=== PATIENT | female | born 1985 | race Caucasian/White ===

== ENCOUNTER 2024-07-24 16:28 | Outpatient (REF) | payer BC, SELFPAY ==
--- OUTSIDE RECORDS SUMMARY | 2024-07-24 17:45 | XMS_ITS | Clinical Summary ---
Author Organization [facility] Address [address] [place] [address] Care Team Providers Care Satellite Dish Repairer Name Role Phone Amita Little MD Primary Care Provider Unavailabl e Encounters Date Type Department Care Team Description 05/12/2024 Travel from Last 3 Months Social History Tobacco Use Types Packs/Day Years Used Date Smoking Tobacco: Never Assessed Comments Unknown Sex and Gender Information Value Date Recorded Sex Assigned at Female 10/18/2023 8:31 AM EDT Legal Sex Female 8:34 AM EDT Gender Identity Female 10/18/2023 8:31 AM EDT Sexual Orientation Heterosexual (straight) 10/17 8:31 AM EDT Plan of Treatment Health Maintenance Due Date Last Done Comments Hepatitis C Virus Screening 1983 HIV Screening 05/28/1996 DTaP/Tdap/Td Vaccines (1 - Tdap) 05/28/2002 Pneumococcal Vaccine: Pediatric (0-5 Years) and At-Risk Patients (6 to 49 Years) (1 of 2 - PCV) 05/28/2002 Hepatitis B Vaccines (1 of 3 - Risk Dialysis 4-dose series) 2003 Pap Smear (Ages 21-65) 05/28/2004 Mammogram 2023 COVID-19 Vaccine (3 - 2023- season) 2023 07/16/2020, 06/25/2020 Influenza Vaccine 10/20/2024 01/16/2014 Hemoglobin A1C Discontinued 12/21/2023 HPV Vaccines Aged Out No longer eligi ble based on patient's age to complete this topic Insurance BLUE CROSS OUT OF STATE - O BLUE CROSS OUT OF FORMERLY [facility], [facility] - [facility] [place] [facility] [place] Care Teams Satellite Dish Repairer Relationship Specialty Start Date End Date Amita Little MD PCP - General 04/16/22
--- OUTSIDE RECORDS SUMMARY | 2024-07-24 17:45 | XMS_ITS | Encounter Summary ---
Author Organization [facility] Address [address] [place] [address] Phone Care Team Providers Care Belt Cutter Name Role Phone Amita Little MD Primary Care Provider [phone] Reason for Visit * Reason Onset Date Comments Med Refill 10/31/2020 Encounter Details Date Type Department Care Team (Late st Contact Info) Description 10/31/2020 Refill [facility] [address] [place] [address] Nanette Funez RN Social History Tobacco Use Types Packs/Day Years Used Date Smoking Tobacco: Never Smokeless Tobacco: Never Alcohol Use Standard Drinks/Week Comments Not Currently 0 (1 standard drink = 0.6 oz pur e alcohol) Comments Unknown Sex and Gender Information Value Date Recorded Sex Assigned at Not on file Legal Sex Female 4:50 PM EST Gender Identity Not on file Sexual Orientation Not on file documented as of this encounter Plan of Treatment Not on file documented as of this encounter Visit Diagnoses Not on filedocumented in this encounter Care Teams Belt Cutter Relationship Specialty Start Date End Date Amita Little MD [address] [place] [phone] PCP - General Internal Medicine 01/28/24 documented as of this encounter
--- OUTSIDE RECORDS SUMMARY | 2024-07-24 17:45 | XMS_ITS | Encounter Summary ---
Author Organization [facility], Address [address] [place] [address] Phone Care Team Providers Care Door To Door Sales Representative Name Role Phone Amita Little MD Primary Care Provider [phone] Encounter Details Date Type Department Care Team (Late st Contact Info) Description 10/09/2020 Telephone [facility] [address] [place] [address] Shawanda Bowens [address] [place] [phone] Social History Tobacco Use Types Packs/Day Years Used Date Smoking Tobacco: Never Smokeless Tobacco: Never Alcohol Use Standard Drinks/Week Comments Not Currently 0 (1 standard drink = 0.6 oz pur e alcohol) Comments Unknown Sex and Gender Information Value Date Recorded Sex Assigned at Not on file Legal Sex Female 4:50 PM EST Gender Identity Not on file Sexual Orientation Not on file COVID-19 Exposure Response Date Recorded In the last month, have you been in contact with someone who was confirmed or suspected to have Coronavirus / COVID-19? No / Unsure 09/30/2020 12:32 PM EDT documented as of this encounter Plan of Treatment Not on file documented as of this encounter Visit Diagnoses Not on filedocumented in this encounter Care Teams Door To Door Sales Representative Relationship Specialty Start Date End Date Amita Little MD [address] [place] [phone] PCP - General Internal Medicine 01/28/24 documented as of this encounter
--- OUTSIDE RECORDS SUMMARY | 2024-07-24 17:45 | XMS_ITS ---
Author Name [facility] Organization Unknown History of Medication Use Medication Directions Dispensed Refills Start Date End Date Stat HumaLOG KWIKPEN 100 UNIT/ML SOPN Inject 12-18 Units under the skin 3 (three) times a day before meals. 12/23/2023 active Semaglutide,0.25 or 0.5MG/DOS, (Ozempic, 0.25 or 0.5 MG/DOSE,) 2 MG/3ML SOPN Inject 0.38-0.75 mL (0.25-0.5 mg total) under the skin once a week. 09/28/2023 01/18/2024 active Insulin Pen Needle (BD Pen Needle Apple U/F) 32G X 4 MM MISC 1 each by Does not apply route 6 (six) times a day. 06/21/2023 active Lantus SoloStar 100 UNIT/ML injection Inject 34 Units under the skin every night at bedtime. 06/21/2023 active Semaglutide,0.25 or 0.5MG/DOS, (Ozempic, 0.25 or 0.5 MG/DOSE,) 2 MG/3ML SOPN Inject 0.25 mg under the skin once a week. 08/06/2022 active losartan (COZAAR) tablet 50 mg 07/13/2022 active Envarsus XR 1 MG TB24 07/03/2022 active Lantus SoloStar 100 UNIT/ML injection 06/19/2022 06/21/2023 aborted HumaLOG KWIKPEN 100 UNIT/ML SOPN 05/28/2022 06/21/2023 aborted Problems Problem Status Onset Date Problem Type Date of Resolution Source Complication of transplanted kidney, unspecified complication active EncounterDiagnosisAct HHCCT History of renal transplant active 2022-07-17 ProblemAct [facility] IgA nephropathy active 2022-07-[address] [facility] Type 2 diabetes mellitus with hyperglycemia, with long-term current use of insulin (HCC) active EncounterDiagnosisAct [facility] Mixed hyperlipidemia active 2022-07-17 ProblemAct [facility] Benign essential hypertension active 2022-07-17 ProblemAct [facility] Immunizations Vaccine Date Source Lot Number Status Pfizer SARS-CoV-2 COVID-19, mRNA, LNP-S, preservative free 07/16/2020 [facility] UNK completed Pfizer SARS-CoV-2 COVID-19, mRNA, LNP-S, preservative free 06/25/2020 [facility] UNK completed Encounters Encounter Type Encounter Reason Primary Diagnosis Location Date Ambulatory Unspecified complication of kidney transplant Unspecified complication of kidney transplant [facility] 05/12/2024 Ambulatory Type 2 diabetes mellitus with hyperglycemia Type 2 diabetes mellitus with hyperglycemia [facility] 01/18/2024 Ambulatory Type 2 diabetes mellitus with hyperglycemia Type 2 diabetes mellitus with hyperglycemia [facility] 01/18/2024 Ambulatory Type 2 diabetes mellitus with hyperglycemia Type 2 diabetes mellitus with hyperglycemia [facility] 12/20/2023 Ambulatory Unspecified complication of kidney transplant Unspecified complication of kidney transplant [facility] 10/21/2023 Ambulatory Type 2 diabetes mellitus with hyperglycemia Type 2 diabetes mellitus with hyperglycemia [facility] 09/20/2023 Ambulatory Type 2 diabetes mellitus with hyperglycemia Type 2 diabetes mellitus with hyperglycemia [facility] 09/13/2023 Ambulatory Type 2 diabetes mellitus with hyperglycemia Type 2 diabetes mellitus with hyperglycemia [facility] 06/21/2023 Ambulatory Unspecified complication of kidney transplant Unspecified complication of kidney transplant [facility] 12/30/2022 Ambulatory Kidney transplan t status [facility] 05/15/2022 Care Team Organization Name Specialty Phone Email Start Date End Da te [facility] 01/29/2024 [facility] 01/27/2024 [facility] 04/03/2023 [facility] 0 06/21/2023 [facility] 12/30/2022 06/19/2024 [facility] PCP,No Primary Care 05/15/2022 06/19/2024 [facility] NO PCP Primary Care [facility]
--- OUTSIDE RECORDS SUMMARY | 2024-07-24 17:45 | XMS_ITS | Encounter Summary ---
Author Organization [facility] Address [address] [place] [address] Phone Care Team Providers Care Product Marketing Executive Name Role Phone Amita Little MD Primary Care Provider [phone] Encounter Details Date Type Department Care Team (Late st Contact Info) Description 07/12/2020 Orders Only [facility] [address] [place] [address] Loreto Hale RN Kidney replaced by transplant Social History Tobacco Use Types Packs/Day Years [...] have Coronavirus / COVID-19? No / Unsure 06/28/2020 9:37 AM EDT documented as of this encounter Plan of Treatment Not on file documented as of this encounter Procedures Procedure Name Priority Date/Time Associated Diagnosis Comments CBC AND DIFFERENTIAL Routine 07/13/2020 12:46 PM EDT Kidney replaced by transplant RENAL FUNCTION PANEL Routine 07/13/2020 12:46 PM EDT Kidney replaced by transplant documented in this encounter Results * (ABNORMAL) Renal function panel (07/13/2020 12:46 PM EDT) Glucose 94 (70-99) MG/DL [facility] BUN 77(H) (6-20) MG/DL [facility] Creatinine 7.4(H) (0.5-1.0) MG/DL [facility] Sodium 139 (133-145) MMOL/L [facility] Potassium 5.8(H) (3.6-5.2) MMOL/L [facility] Chloride 107 (98-107) MMOL/L [facility] Bicarbonate (CO2) 15(L) (22-29) MMOL/L [facility] Anion Gap 17 (4-17) [facility] Albumin 4.5 (3.4-4.8) GM/DL [facility] Calcium 9.2 (8.6-10.5) MG/DL [facility] Phosphorus, Serum 5.6(H) (2.5-4.5) MG/DL [facility] Est GFR Non 6 ML/MIN/1.7 3 M2 [facility] Comment: Creatinine based estimated glomerular filtration rate (eGFR) is calculated using the Chronic Kidney Disease Epidemiology Collaboration (CKD-EPI). The CKD-EPI creatinine equation has not been validated in children (<18 years), women or in some racial or ethnic subgroups other than Caucasians and Americans. EST GFR 7 ML/MIN/1.7 3 M2 [facility] Comment: Creatinine based estimated glomerular filtration rate (eGFR) is calculated using the Chronic Kidney Disease Epidemiology Collaboration (CKD-EPI). The CKD-EPI creatinine equation has not been validated in children (<18 years), women or in some racial or ethnic subgroups other than Caucasians and Americans. Testing performed or reported by [facility], a Service of [facility], [address] [place] [address] Sadiq Rai MD, Charge Master Analyst Blood (Blood, Venous) 07/13/2020 12:46 PM EDT 07/13/2020 12:55 PM EDT us Joss Restrepo MD LAB BLOOD ORDERABLES Final Re sult [facility] * (ABNORMAL) CBC and differential (07/13/2020 12:46 PM EDT) [facility] White Blood Cells 4.1 (4.0-11.0) K/MM3 [facility] RBC 2.65(L) (4.20-5.40 ) M/MM3 [facility] Hgb 7.9(L) (11.7-15.5 ) GM/DL [facility] Hematocrit 24.0(L) (35.7-45.8 ) % [facility] MCV 90.6 (80.0-100. 0) FL [facility] MCH 29.8 (27.0-34.0 ) PG [facility] MCHC 32.9(L) (33.0-37.0 ) g/dL [facility] Platelets 163 (150-460) K/MM3 [facility] RDW-SD 57.1(H) (<47.0) FL [facility] MPV 9.3(L) (9.4-12.4) [place] [facility] nRBC Count 0.0 #/100 WBC'S [facility] NRBC Absolute 0.0 K/MM3 [facility] Neutrophils Abs Auto 3.8 (1.3-7.0) K/MM3 [facility] Lymphocytes Relative 0.0(L) (0.8-3.1) K/MM3 [facility] Monocytes 0.1(L) (0.4-0.9) K/MM3 [facility] Eosinophils Relative 0.0 (0.0-0.4) K/MM3 [facility] Basophil ABS 0.0 (0.0-0.1) K/MM3 [facility] Granulocytes Absolute 0.1 K/MM3 [facility] Neutrophils % Auto 92.9(H) (44-76) % [facility] Lymphs 0.0(L) (15-43) % [facility] Monocytes Absolute 3.2(L) (4.5-10.5) % [facility] Eosinophils 0.0 (0-6) % [facility] Basophils Relative 0.5 (0-2) % [facility] Immature Granulocytes 3.4 % [facility] Comment: Testing performed or reported by [facility] a Service of [facility], [address] [place] [id number] Sadiq Rai MD, Charge Master Analyst Blood (Blood, Venous) 07/13/2020 12:46 PM EDT 07/13/2020 12:55 PM EDT Joss Restrepo MD LAB BLOOD ORDERABLES Final Re sult [facility] documented in this encounter Visit Diagnoses Diagnosis Kidney replaced by transplant documented in this encounter Care Teams Product Marketing Executive Relationship Specialty Start Date End Date Amita Little MD [address] [place] [phone] PCP - General Internal Medicine 01/28/24 documented as of this encounter
--- OUTSIDE RECORDS SUMMARY | 2024-07-24 17:45 | XMS_ITS | Encounter Summary ---
Author Organization [facility], Address [address] [place] [address] Phone Care Team Providers Care Book Salesman Name Role Phone Amita Little MD Primary Care Provider [phone] Encounter Details Date Type Department Care Team (Late st Contact Info) Description 11/18/2023 Documentation Only [facility], [address] [place] [address] Ann Jones [address] [place] [address] Social History Tobacco Use Types Packs/Day Years [...] on filedocumented in this encounter Care Teams Book Salesman Relationship Specialty Start Date End Date Amita Little MD [address] [place] [phone] PCP - General Internal Medicine 01/28/24 documented as of this encounter
--- OUTSIDE RECORDS SUMMARY | 2024-07-24 17:45 | XMS_ITS | Encounter Summary ---
Author Organization [facility], Address [address] [place] [address] Phone Care Team Providers Care Gauge And Weigh Machine Operator Name Role Phone Amita Little MD Primary Care Provider [phone] Encounter Details Date Type Department Care Team (Late st Contact Info) Description 06/18/2024 Documentation Only [facility], [address] [place] [address] [place] [address] [place] [phone] Social History Tobacco Use Types Packs/Day Years Used Date Smoking Tobacco: Never Smokeless Tobacco: Never Alcohol Use Standard Drinks/Week Comments Yes 0 (1 standard drink = 0.6 oz pur e alcohol) occasional social Comments Unknown Sex and Gender Information Value Date Recorded Sex Assigned at Not on file Legal Sex Female 4:50 PM EST Gender Identity Not on file Sexual Orientation Not on file documented as of this encounter Plan of Treatment Not on file documented as of this encounter Visit Diagnoses Not on filedocumented in this encounter Care Teams Gauge And Weigh Machine Operator Relationship Specialty Start Date End Date Amita Little MD [address] [place] [phone] PCP - General Internal Medicine 01/28/24 documented as of this encounter
--- OUTSIDE RECORDS SUMMARY | 2024-07-24 17:45 | XMS_ITS | Clinical Summary ---
Author Organization [facility] Address [address] [place] [address] Care Team Providers Care Property And Casualty Insurance Agent Name Role Phone Amita Little MD Primary Care Provider [phone] Medications Medication Sig Dispensed Refills Start Date End Date Status Magnesium Extra Strength 400 MG CAPS 0 07/13/2022 Acti ve atorvastatin (LIPITOR) tablet 20 mg 0 07/13/2022 Active losartan (COZAAR) tablet 50 mg 0 07/13/2022 Active predniSONE (DELTASONE) tablet 2.5 mg 0 07/13/2022 Active Envarsus XR 1 MG TB24 0 07/03/2022 Act shyanne mycophenolate (MYFORTIC) 180 MG EC tablet 0 05/05/2023 Active Continuous Blood Gluc Sensor (FreeStyle Wilman 3 Sensor) MISCIndications:Type 2 diabetes mellitus with hyperglycemia, with long-term current use of insulin ([facility]) 1 each by Does not apply route every 14 (fourteen) days. 6 each 3 06/21/2023 Active Glucagon (Baqsimi Two Pack) 3 MG/DOSE POWDIndications:Type 2 diabetes mellitus with hyperglycemia, with long-term current use of insulin ([facility]) spray or apply 1 each inside Nose as needed. 1 each 1 06/21/2023 Active OneTouch Delica Lancets 33G MISCIndications:Type 2 diabetes mellitus with hyperglycemia, with long-term current use of insulin ([facility]) Use to check sugars 3 times a day 100 each 12 06/21/2023 Active Blood Glucose Monitoring Suppl (OneTouch Verio Flex System) w/Device KITIndications:Type 2 diabetes mellitus with hyperglycemia, with long-term current use of insulin ([facility]) 1 each by Does not apply route continuous. 1 kit 0 06/21/2023 Active glucose blood (OneTouch Verio) test stripIndications:Type 2 diabetes mellitus with hyperglycemia, with long-term current use of insulin ([facility]) Use to check sugars 3 times a day 100 each 12 06/21/2023 Active HumaLOG KWIKPEN 100 UNIT/ML SOPNIndications:Type 2 diabetes mellitus with hyperglycemia, with long-term current use of insulin ([facility]) Inject 12-18 Units under the skin 3 (three) times a day before meals. 30 mL 3 12/23/2023 Active Lantus SoloStar 100 UNIT/ML injectionIndications:T ype 2 diabetes mellitus with hyperglycemia, with long-term current use of insulin ([facility]) Inject 34 Units under the skin every night at bedtime. 30 mL 4 01/18/2024 Active Semaglutide,0.25 or 0.5MG/DOS, (Ozempic, 0.25 or 0.5 MG/DOSE,) 2 MG/3ML SOPNIndications:Type 2 diabetes mellitus with hyperglycemia, with long-term current use of insulin ([facility]) Inject 0.38-0.75 mL (0.25-0.5 mg total) under the skin once a week. 3 mL 1 01/18/2024 Active Insulin Pen Needle (BD Pen Needle Apple U/F) 32G X 4 MM MISCIndications:Type 2 diabetes mellitus with hyperglycemia, with long-term current use of insulin ([facility]) 1 each by Does not apply route 6 (six) times a day. 400 each 10 01/18/2024 Active Active Problems Problem Noted Date Diagnosed Date Benign essential hypertension 07/17/2022 Mixed hyperlipidemia 07/17/2022 IgA nephropathy 07/17/2022 History of renal transplant 07/17/2022 Social History Tobacco Use Types Packs/Day Years Used Date Smoking Tobacco: Never Smokeless Tobacco: Never Tobacco Cessation:Counseling Given: No Alcohol Use Standard Drinks/Week Comments Not Currently 0 (1 standard drink = 0.6 oz pur e alcohol) Sex and Gender Information Value Date Recorded Sex Assigned at Not on file Gender Identity Not on file Sexual Orientation Not on file Job Start Date Occupation Industry Not on file Not on file Not on file Last Filed Vital Signs Vital Sign Reading Time Taken Comments Blood Pressure 122/80 12/20/2023 2:54 PM EDT Pulse 79 12/20/2023 2:54 PM EDT Temperature - - Respiratory Rate - - Oxygen Saturation - - Inhaled Oxygen Concentration - - Weight 88 kg (194 lb) 12/20/2023 2:54 PM EDT Height 163.2 cm (5' 4.25 ) 09/13/2023 3:01 PM ED T Body Mass Index 33.04 09/13/2023 3:01 PM EDT Plan of Treatment Health Maintenance Due Date Last Done Comments Hepatitis C Screening 1985 Pneumococcal Vaccine (1 of 2 - PCV) 05/28/1989 Depression Screening 1995 Diabetes: Eye Exam (No Retinopathy) 05/28/2001 Diabetes: Foot Exam 05/28/2001 Diabetes: Microalbumin Test 05/28/2001 Hemoglobin A1C Due 05/28/2001 Preventative Health Evaluation 05/28/2001 Cervical Cancer Screening (Pap Smear) 05/28/2004 COVID-19 Vaccine (3 - Pfizer risk series) 08/13/2020 07/16/2020, 06/25/2020 Influenza Vaccine (#1) 2023 DTap / Tdap / Td (4 - Td or Tdap) 01/17/2024 01/16/2014, 11/01/2007, 11/19/1992 BMI Counseling 12/19/2024 12/20/2023, 07/0 03/2023, 09/13/2023, Additional history exists Hepatitis B Vaccines Completed 11/12/1997, 12/21/1995, 07/20/1995 RSV Ped < 20 months Aged Out No longe r eligible based on patient's age to complete this topic Care Teams Property And Casualty Insurance Agent Relationship Specialty Start Date End Date Amita Little MD PCP - General Internal Medicine 07/15/22
--- OUTSIDE RECORDS SUMMARY | 2024-07-24 17:45 | XMS_ITS | Encounter Summary ---
Author Organization [facility] Address [address] [facility] [address] [place] [address] Phone Care Team Providers Care Set Rider Name Role Phone Amita Little MD Primary Care Provider [phone] Encounter Details Date Type Department Care Team ([facility] st Contact Info) Description 09/30/2023 Office Communication [facility] [address] [facility] [address] [place] [address] Venkata Childress MD [address] [facility] [address] [place] [address] Social History Tobacco Use Types Packs/Day Years [...] on file documented as of this encounter Miscellaneous Notes * Telephone Encounter - Venkata Childress MD - 10/01/2023 4:23 PM EDT K 5.5 Lokelma 10 gm 3x/wk and low K diet * Telephone Encounter - Venkata Childress MD - 09/30/2023 5:10 AM EDT I need kidney Bx report from [facility] ( Dr Estevez) as all I have is the procedure report documented in this encounter Plan of Treatment Not on file documented as of this encounter Visit Diagnoses Not on filedocumented in this encounter Care Teams Set Rider Relationship Specialty Start Date End Date Amita Little MD [address] [place] [phone] PCP - General Internal Medicine 01/28/24 documented as of this encounter
--- OUTSIDE RECORDS SUMMARY | 2024-07-24 17:45 | XMS_ITS | Encounter Summary ---
Author Organization [facility] Address [address] [place] [address] Phone Care Team Providers Care Product Development Specialist Name Role Phone Amita Little MD Primary Care Provider [phone] Encounter Details Date Type Department Care Team (Late st Contact Info) Description 08/12/2020 Orders Only [facility] [address] [place] [address] Loreto Hale RN Social History Tobacco Use Types Packs/Day [...] have Coronavirus / COVID-19? No / Unsure 08/12/2020 8:31 AM EDT documented as of this encounter Plan of Treatment Not on file documented as of this encounter Visit Diagnoses Not on filedocumented in this encounter Care Teams Product Development Specialist Relationship Specialty Start Date End Date Amita Little MD [address] [place] [phone] PCP - General Internal Medicine 01/28/24 documented as of this encounter
--- OUTSIDE RECORDS SUMMARY | 2024-07-24 17:45 | XMS_ITS | Encounter Summary ---
Author Organization [facility] Address [address] [place] [address] Phone Care Team Providers Care Core Java Software Engineer Name Role Phone Amita Little MD Primary Care Provider [phone] Reason for Visit * Reason Comments Med Refill Encounter Details Date Type Department Care Team (Late st Contact Info) Description 11/17/2023 Refill [facility] [address] [place] [phone] Venkata Childress MD [address] [facility] [address] [place] [phone] Social History Tobacco Use Types Packs/Day Years [...] on filedocumented in this encounter Care Teams Core Java Software Engineer Relationship Specialty Start Date End Date Amita Little MD [address] [place] [phone] PCP - General Internal Medicine 01/28/24 documented as of this encounter
--- OUTSIDE RECORDS SUMMARY | 2024-07-24 17:45 | XMS_ITS | Encounter Summary ---
Author Organization [facility] Address [address] [facility] [address] [place] [address] Phone Care Team Providers Care Hazard Waste Handler Name Role Phone Amita Little MD Primary Care Provider [phone] Encounter Details Date Type Department Care Team ([facility] st Contact Info) Description 10/31/2023 Office Communication [facility] [address] [place] [address] [place] [address] Venkata Childress MD [address] [facility] [address] [place] [phone] Social History Tobacco Use Types Packs/Day Years [...] encounter Miscellaneous Notes * Telephone Encounter - Nelia Joseph - 11/01/2023 10:25 AM EDT No she is being seen at [facility] 11/17 * Telephone Encounter - Venkata Childress MD - 10/31/2023 4:08 PM EDT Does she have f/u RTANE ? documented in this encounter Plan of Treatment Not on file documented as of this encounter Visit Diagnoses Not on filedocumented in this encounter Care Teams Hazard Waste Handler Relationship Specialty Start Date End Date Amita Little MD [address] [place] [address] PCP - General Internal Medicine 01/28/24 documented as of this encounter
--- OUTSIDE RECORDS SUMMARY | 2024-07-24 17:45 | XMS_ITS | Encounter Summary ---
Author Organization [facility] Address [address] [place] [address] Care Team Providers Care Resource Specialist Name Role Phone Amita Little MD Primary Care Provider [phone] Reason for Visit * Reason Onset Date Comments Referral 07/24/2024 Encounter Details Date Type Department Care Team ([facility] Contact Info) Description 07/24/2024 Telephone Adult Medicine [facility] [address] [place] [address] Amita Little MD [address] [place], [place] [phone] Referral Social History Tobacco Use Types Packs/Day Years Used Date Smoking Tobacco: Never Smokeless Tobacco: Never Alcohol Use Standard Drinks/Week Comments Not Currently 0 (1 standard drink = 0.6 oz pur e alcohol) Comments Unknown Sex and Gender Information Value Date Recorded Sex Assigned at Not on file Legal Sex Female 11:56 AM EST Gender Identity Not on file Sexual Orientation Not on file documented as of this encounter Progress Notes * Nadine Dooley - 07/24/2024 4:49 PM EDT Referral Request: What insurance does the patient have today? Payor: BRADLEY Casas [place] / Plan[place] / Product Type: *No Product type* / Referrals cannot be processed if the insurance is not accurate. If the insurance listed above in red is NO BILLING INFORMATION FOUND FOR THIS ENCOUTNER The patients correct insurance must be obtained and registered in [facility] or their referral can not be processed. Who is calling to request this referral? fax If the caller is not the patient, what is their name? not applicable Ask the patient WHO referred them to this specialty: Patient self referred FIRST and LAST NAME of SPECIALIST PATIENT is seeing: Maureen Singh NP What specialty is this? Renal DIAGNOSIS Patient is being seen for (Not a body part or a procedure): Z 94.0 Have you seen this SPECIALIST for this PROBLEM/DX before? If YES, when? No Have you checked REVIEW or the APPT DESK to see if this referral has already been done or has visits left? yes Is this visit: Initial Visit Address of Specialist: [address] [place] [address] Dr Crescencio Auguste [place] Phone # of Specialist: [phone] Fax #: (if applicable): [phone] Does patient have an appointment scheduled?: yes Date of appointment- (including a retro-request): 07/20/24 Is this appointment related to: Not MVA, worker compensation, or surgery related documented in this encounter Plan of Treatment Upcoming Encounters Date Type Department Care Team (Late st Contact Info) Description 07/31/2024 8:50 AM EDT Office Visit [facility] [address] [place] [address] Dr Haq [address] [place] [phone] Bharat Pimentel MD [address] [place] [address],[address] [address] 08/15/2024 5:00 PM EDT Office Visit Adult Medicine [address] [phone] Pauly Meza NP [address] [place], [place] 08/21/2024 3:15 PM EDT [facility] [address] [phone] Suellen Araujo PA [address] [place] [address] documented as of this encounter Visit Diagnoses Diagnosis 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
--- OUTSIDE RECORDS SUMMARY | 2024-07-24 17:45 | XMS_ITS | Encounter Summary ---
Author Organization [facility], Address [address] [place] [address] Phone Care Team Providers Care Molder Name Role Phone Amita Little MD Primary Care Provider [phone] Encounter Details Date Type Department Care Team (Latest Contact Info) Description 07/20/2024 4:00 PM EDT Clinical Support [facility] [address] [place] [phone] Maureen Singh FNP-C [address] [place] [phone] Kidney replaced by transplant (Primary Dx); Kidney transplant status; Personal history of immunosuppression therapy; Stage 3b chronic kidney disease (HCC) Social History Tobacco Use Types Packs/Day Years [...] on file documented as of this encounter Last Filed Vital Signs Vital Sign Reading Time Taken Comments Blood Pressure 149/94 07/20/2024 4:10 PM EDT Pulse 79 07/20/2024 4:10 PM EDT Temperature - - Respiratory Rate - - Oxygen Saturation - - Inhaled Oxygen Concentration - - Weight 87 kg (191 lb 12.8 oz) 07/20/2024 4:10 PM EDT Height - - Body Mass Index 32.92 06/08/2024 7:39 AM EDT documented in this encounter Plan of Treatment Scheduled Orders Name Type Priority Associated Diagnoses Orde r Schedule Tacrolimus, Highly Sensitive, LC/MS/MS Lab Routine Kidney replaced by transplant Expected: 07/20/2024, Expires: 08/20/2025 documented as of this encounter Visit Diagnoses Diagnosis Kidney replaced by transplant- Primary Kidney transplant status Personal history of immunosuppression therapy Stage 3b chronic kidney disease (HCC) documented in this encounter Care Teams Molder Relationship Specialty Start Date End Date Amita Little MD [address] [place] [id number] PCP - General Internal Medicine 01/28/24 documented as of this encounter
--- OUTSIDE RECORDS SUMMARY | 2024-07-24 17:45 | XMS_ITS | Clinical Summary ---
Author Organization [place] [address] [address] [facility] Address [address] [place] [address] [address] Phone Care Team Providers Care Security Systems Specialist Name Role Phone Amita Little MD Primary Care Provider [phone] Allergies No known active allergies Medications atorvastatin (LIPITOR) 20 mg tablet Take 1 Tablet by mouth daily. 02/25/2023 Active semaglutide (OZEMPIC) 0.25 mg or 0.5 mg (2 mg/3 mL) injection pen Inject 0.38-0.75 mL (0.25-0.5 mg total) under the skin once a week. 01/18/2024 Active predniSONE (DELTASONE) 2.5 mg tablet Take 3 tablets (7.5 mg total) by mouth 1 (one) time daily 60 minutes before a meal 7.5 mg daily 07/13/2022 Active insulin glargine (LANTUS) 100 unit/mL injection Inject 22 Units into the skin at bedtime. 06/13/2020 Active tacrolimus (Envarsus XR) 1 mg extended release tablet 12/16/2021 Acti ve aspirin 81 mg EC tabletIndicatio ns:Annual physical exam Take 1 tablet (81 mg total) by mouth 1 (one) time each day. 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[place]) Type 2 diabetes mellitus ([facility] V24, [facility] V 28) 05/27/2020 Assessment & Plan (05/17/2024 8:45 AM EST): A-V fistula ([facility] [place]24) 12/14/2018 Overweight (BMI 25.0-29.9) 12/23/2017 Hypertension 04/21/2017 Assessment & Plan (05/17/2024 8:45 AM EST): Secondary hyperparathyroidism ([facility]) 03/24 Vitamin D deficiency 04/21/2017 ESRD on dialysis ([facility] [place], [facility] V28) 06/2016 Overview (02/11/2024): Follows with nephrology, most recent renal biopsy 01/06/2017 with 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 [address] [facility] [address] [place] [address] Amita Little MD 06/12/2024 Telephone Adult [address] [phone] Amita Little MD Referral (Ophthalmology ) 05/16/2024 10:30 AM EST Office Visit Adult [address] [phone] Amita Little MD Cerebrovascular accident (CVA) due to thromboembolism ([facility] V24, [facility] V28) (Primary Dx); Primary hypertension; Type 2 diabetes mellitus with other specified complication, without long-term current use of insulin (CMS[facility] V24, [facility] V28) 05/03/2024 8:18 AM EST - 05/03/2024 11:59 PM EST Hospital Encounter CT Scan - [address] [phone] Annual physical exam; Slurred speech; History of stroke Discharge Disposition: Home or Self Care 05/03/2024 Telephone Adult Medicine [address] [phone] Pauly Meza, FUR PULLER Results (CT scan of the head) from Last 3 Months Immunizations Name Administration Dates Next Due Hepatitis B Pediatric (Enger ix B; Recombivax HB) to less than 20 yo 11/12/1997,12/21/1995,07/20/1995 MMR, measles mumps and rubel la Live (Priorix; M-M-R II) 12mo and older 07/20/1995,08/20/1984 Pfizer SARS-CoV-2 COVID-19, mRNA, LNP-S, preservative free 07/16/2020,06/25/2020 Td Tetanus diptheria (Tdvax) 7yo and older 11/19 Tdap Tetanus diptheria acell ular pertussis (Boostrix; Adacel) 7yo and older 11/01/2007 Social History Tobacco Use Types Packs/Day Years Used Date Smoking Tobacco: Never Smokeless Tobacco: Never Tobacco Cessation:Counseling Given: Not Answered Alcohol Use Standard Drinks/Week Comments Not Currently 0 (1 standard drink = 0.6 oz pur e alcohol) Comments Unknown Sex and Gender Information Value Date Recorded Sex Assigned at Not on file Legal Sex Female 11:56 AM EST Gender Identity Not on file Sexual Orientation Not on file Obstetrics History Last Filed Vital Signs Vital Sign Reading Time Taken Comments Blood Pressure 116/66 05/16/2024 10:12 AM EST Pulse 78 05/16/2024 10:12 AM EST Temperature 36 ??C (96.8 ??F) 05/16/2024 10:12 AM EST Respiratory Rate 20 05/16/2024 10:12 AM EST Oxygen Saturation - - Inhaled Oxygen Concentration - - Weight 87.5 kg (193 lb) 05/16/2024 10:12 AM EST Height 163.8 cm (5' 4.5 ) 05/16/2024 10:12 AM ES T Body Mass Index 32.62 05/16/2024 10:12 AM EST Plan of Treatment Upcoming Encounters Date Type Department Care Team (Late st Contact Info) Description 07/31/2024 8:50 AM EDT Office Visit [facility] [address] [place] [address] Bharat Pimnetel MD [address] [place] [address],[address] [place] [address] 08/15/2024 5:00 PM EDT Office Visit Adult Medicine [address] [phone] Pauly Meza NP [address] [place], [place] 08/21/2024 3:15 PM EDT [facility] [place] [address] [phone] Suellen Araujo PA [address] [place] [address] Health Maintenance Due Date Last Done Comments Diabetes: Annual GFR (Glomerular Filtration Rate) 1983 Diabetes: Annual Foot Exam 05/28/1993 Depression Screening 02/28/2022 HIV Screening 02/28/2022 Social Influencers of Health Screening 02/28/2022 Hypertension/CHF/CAD Annual BMP Blood Test 03/01/2022 DTaP,Tdap,and Td Vaccines (4 - Td or Tdap) 01/17/2024 01/16/2014, 11/01/2007, 11/19/1992 Diabetes: Annual Retina Eye Exam 04/28/2024 04/28/2023 HPV Vaccines (2 - Risk 3-dose SCDM series) 05/22/2024 04/24/2024 Diabetes: Annual Urine Albumin-Creatinine Ratio (uACR) 08/23/2024 08/24/2023, 04/01/2022 Diabetes: Blood Sugar Control Test (HGBA1C) 11/10/2024 05/13/2024, 05/13/2024, 04/15/2024, Additional history exists Breast Cancer Screening 07/27/2025 07/28/2023 Cervical Cancer Screening: Pap Smear 01/26/2027 01/27/2024, 03/30/2019 Cholesterol Screening (Lipid Panel) 11/12/2028 11/13/2023 MMR Vaccines Completed 07/20/1995, 08/20/1984 Hepatitis B Vaccines Completed 11/12/1997, 12/21/1995, 07/20/1995 Influenza Vaccine Discontinued 01/16/2014 Varicella Vaccines Aged Out 01/06/2018, 12/09/2017 No longer eligible based on patient's age to complete this topic Hepatitis C Screening Completed 03/29/2018 COVID-19 Vaccine Discontinued 07/16/2020, 06/25/2020 Meningococcal ACWY Vaccine Aged Out 11/28/2021 N o longer eligible based on patient's age to complete this topic Meningococcal B Vaccine Aged Out 11/28/2021 No l onger eligible based on patient's age to complete this topic HIB Vaccines Aged Out No longer eligi ble based on patient's age to complete this topic Hepatitis A Vaccines Discontinued IPV Vaccines Aged Out No longer eligi ble based on patient's age to complete this topic Pneumococcal Vaccine: Pediatrics (0 to 5 Years) and At-Risk Patients (6 to 64 Years) Discontinued RSV Immunization Patients Under 20 months Aged Out No longer eligible based on patient's age to complete this topic Procedures Procedure Name Priority Date/Time Associated Diagnosis Comments EXTERNAL ECHO Routine 05/05/2024 11:[address] HEAD WO CONTRAST Routine 05/03/2024 8 :26 AM EST Annual physical exam Slurred speech History of stroke HEMOGLOBIN A1C Routine 12/21/2023 LIPID PANEL Routine 11/13/2023 HM URINE ALBUMIN CREATININE RATIO Routine 08/24/2023 PAP SMEAR Routine 03/30/2019 HEPATITIS C SCREENING Routine 03/29/2018 from Last 3 Months or Most Recently Relevant to Health Maintenance Results * External Echo (05/05/2024 11:52 AM EST) Anatomical Region Laterality Modality Ultrasound us Historical Provider MD WYATT ECHO PROCEDURES Final Result * CT Head wo Contrast (05/03/2024 8:26 AM EST) Anatomical Region Laterality Modality Head and Neck Computed Tomogra phy 05/03/2024 10:2 6 AM EST Impressions 05/03/2024 11:28 AM EST Focal gyral hyperdensity in the right frontal lobe as described. This may represent cortical laminar necrosis secondary to cerebral hypoperfusion, hypoxia, hypoglycemia, etc. Bilateral infarcts, new since the previous study. A Secure Chat message was sent to the ordering provider. -------- FINAL REPORT -------- Dictated By: Mary Parrish Dictated Date: 05/03/2024 10:26 ET Assigned Physician: Mary Parrish Reviewed and Electronically Signed By: Mary Parrish Signed Date: 05/03/2024 11:28 ET Workstation ID: [id number] Transcribed By: Self Edit Transcribed Date: 05/03/2024 11:06 ET Narrative 05/03/2024 11:[address] HEAD WO CONTRAST HISTORY: ??Stroke. Follow-up. History of stroke. Slurred speech recently. TECHNIQUE: Contiguous axial images were obtained from the skull base to the vertex without contrast. PRIOR STUDIES: CT head 03/16/2021. FINDINGS: There is an old infarct of the right frontal lobe. However, this contains new focal gyral hyperdensity. There are old infarcts of the right posterior parietal lobe, left frontal lobe, and left occipital lobe. These were not present on the previous study. The pablo/white matter differentiation is preserved. The ventricles and sulci are normal in size and symmetric. The basal cisterns are patent. There is no mass effect or midline shift. ?? There are no intra or extra-axial fluid collections identified. Pituitary gland is grossly unremarkable. Infundibulum is midline. No skull fractures are seen. There is minor membrane thickening of the left-sided sphenoid sinus. The paranasal sinuses and mastoid air cells are otherwise clear. Procedure Note Mary Parrish MD - 05/03/2024 CT HEAD WO CONTRAST HISTORY: Stroke. Follow-up. History of stroke. Slurred speech recently. TECHNIQUE: Contiguous axial images were obtained from the skull base tothe vertex without contrast. PRIOR STUDIES: CT head 03/16/2021. FINDINGS: There is an old infarct of the right frontal lobe. However, this containsnew focal gyral hyperdensity. There are old infarcts of the right posterior parietal lobe, left frontallobe, and left occipital lobe. These were not present on the previousstudy. The pablo/white matter differentiation is preserved. The ventricles and sulci are normal in size and symmetric. The basalcisterns are patent. There is no mass effect or midline shift. There are no intra or extra-axial fluid collections identified. Pituitary gland is grossly unremarkable. Infundibulum is midline. No skull fractures are seen. There is minor membrane thickening of the left-sided sphenoid sinus. Theparanasal sinuses and mastoid air cells are otherwise clear. IMPRESSION: Focal gyral hyperdensity in the right frontal lobe as described. This mayrepresent cortical laminar necrosis secondary to cerebral hypoperfusion,hypoxia, hypoglycemia, etc. Bilateral infarcts, new since the previous study. A Secure Chat message was sent to the ordering provider. -------- FINAL REPORT -------- Dictated By: Mary Parrish Dictated Date: 05/03/2024 10:26 ET Assigned Physician: Mary Parrish Reviewed and Electronically Signed By: Mary Parrish Signed Date: 05/03/2024 11:28 ET Workstation ID: [id number] Transcribed By: Self Edit Transcribed Date: 05/03/2024 11:06 ET Result [facility] Pauly Meza FUR PULLER IMG CT PROCEDURES Final Resu lt * Lipid panel (11/13/2023) [facility] Triglycerides 0 mg/dL Comment:no interpretation, a bstracted Cholesterol 0 mg/dL Comment:no interpretation, a bstracted HDL 0 mg/dL Comment:no interpretation, a bstracted LDL Cholesterol 0 mg/dL Comment:no interpretation, a bstracted Blood Venous blood specimen / Unknown Result [facility] LAB BLOOD ORDERABLES Mary Jo l Result * Urine Albumin Creatinine Ratio (08/24/2023) [facility] Urine Albumin Creatinine Ratio Abstracted Result [facility] HEALTH MAINTENANCE Final Result * Pap Smear (03/30/2019) [facility] Pap smear no interpretation , abstracted Result [facility] Provider HEALTH MAINTENANCE Final Result * Hepatitis C Screening (03/29/2018) [facility] Hepatitis C Screening Abstracted Result [facility] HEALTH MAINTENANCE Final Result from Last 3 Months or Most Recently Relevant to Health Maintenance Insurance [facility] Care Teams Security Systems Specialist Relationship Specialty Start Date End Date Amita Little MD [address] [place] [id number] PCP - General Internal Medicine 04/17/21
--- OUTSIDE RECORDS SUMMARY | 2024-07-24 17:46 | XMS_ITS | Clinical Summary ---
Author Organization [facility], Address [address] [place] [address] [place] [address] Phone Care Team Providers Care Medical Billing Specialist Name Role Phone Amita Little MD Primary Care Provider [phone] Allergies Active Allergy Reactions Criticality Noted Date Comments Amlodipine Besy-Benazepril Hcl Swelling High 05/19 Medications insulin lispro (HumaLOG) 100 UNIT/ML injection Inject 0-8 Units under the skin 3 (three) times a day before meals Glucose 160-250 take 3 units Glucose >250 < 300 5 units Glucose >300 7 units 7.2 mL 11 04/29/19 23 Active Lantus SoloStar 100 UNIT/ML injectionIndications:T ype 2 diabetes mellitus without complication (HCC) INJECT 30 UNITS UNDER THE SKIN EVERY NIGHT 15 mL 5 10/08/19 23 Active mycophenolate (MYFORTIC) 180 MG EC tablet Take 3 tablets (540 mg total) by mouth in the morning and 3 tablets (540 mg total) in the evening. 180 tablet 11/24/19 24 2024 Active Tacrolimus ER (Envarsus XR) 1 MG tablet sustained-release 24 hourIndications:Kidney replaced by transplant Take 4 mg by mouth 1 (one) time each day 120 tablet 12/22/19 24 2024 Active predniSONE (DELTASONE) 2.5 MG tabletIndications:Kidn ey replaced by transplant Take 3 tablets (7.5 mg total) by mouth 1 (one) time daily 60 minutes before a meal 7.5 mg daily 90 tablet 01/05/20 24 2024 Active losartan (Cozaar) 50 MG tablet Take 1 tablet (50 mg total) by mouth 1 (one) time each day 90 tablet 3 01/28/20 24 2024 Active cinacalcet (SENSIPAR) 60 MG tabletIndications:Tert iary hyperparathyroidism (HCC) TAKE ONE TABLET BY MOUTH ONCE DAILY 30 tablet 11 03/03/20 24 Active Magnesium Extra Strength 400 MG capsuleIndications:Hyp omagnesemia TAKE 1 CAPSULE BY MOUTH IN THE MORNING AND 1 CAPSULE IN THE EVENING AND 1 CAPSULE BEFORE BEDTIME. 90 capsule 11 03/13/20 24 Active cholecalciferol (VITAMIN D-3) 50 MCG (1999) capsule TAKE ONE CAPSULE BY MOUTH ONCE DAILY 90 capsule 3 04/28/19 25 Active aspirin (ST RAFAT) 81 MG EC tablet Take 81 mg by mouth 1 (one) time each day Active atorvastatin (LIPITOR) 20 MG tabletIndications:Hype rcholesterolemia, not otherwise specified TAKE 1 TABLET (20 MG TOTAL) BY MOUTH 1 (ONE) TIME EACH DAY 90 tablet 3 05/26/19 25 2025 Active Additional Information Patient taking differently: 40 mgOral Daily, Reported on 06/08/2024 Semaglutide,0.25 or 0.5MG/DOS, 2 MG/3ML solution pen-injector Inject 0.38-0.75 mL (0.25-0.5 mg total) under the skin once a week. 01/18/20 24 Active phenazopyridine (PYRIDIUM) 100 MG tablet Take 100 mg by mouth in the morning and 100 mg at noon and 100 mg in the evening. 05/17/19 25 Active sodium bicarbonate 650 MG tablet TAKE 2 TABLETS BY MOUTH IN THE MORNING AND 2 TABLETS IN THE EVENING. 360 tablet 3 06/07/19 25 Active Tacrolimus ER (Envarsus XR) 0.75 MG tablet sustained-release 24 hour Take 1 tablet by mouth in the morning and 1 tablet in the evening. 210 tablet 11 07/21/19 25 2025 Active Active Problems Problem Noted Date Diagnosed Date Personal history of immunosuppression therapy Chronic kidney disease stage 3B 01/24/2024 Essential (primary) hypertension 10/07/2022 Fatty liver 04/19/2022 Type 2 diabetes mellitus without complication Stroke 12/25/2021 Kidney transplant status 05/07/2020 Secondary hyperparathyroidism 04/21/2017 Vitamin D deficiency 04/21/2017 IgA nephropathy 01/15/2017 Gestational diabetes mellitus 03/24/2015 Mixed hyperlipidemia 07/29/2014 Resolved Problems Problem Noted Date Diagnosed Date Resolved Date Drug or chemical induced [place] bet[place] mellitus with hyperosmolarity without nonketotic hyperglycemic-hyperosmolar coma ([facility]) 02/14/2023 03/17/2024 Type 2 diabetes mellitus wit h diabetic chronic kidney disease 06/09/2022 07/07/2022 Infective vaginitis 06/09/2022 03/17/20 24 Hypercalcemia 2022 03/17/2024 Contact with and (suspected) exposure to COVID-19 05/06/2021 12/24/2021 Abnormal vaginal bleeding 04/28/2021 Hypertension in chronic kidn ey disease stage 5 due to type 2 diabetes mellitus 04/28/20212021 Mastodynia 04/28/2021 03/17/2024 Obesity 04/28/2021 04/19/2022 Abnormal uterine bleeding 09/19/2020 Acute rejection of renal transplant 06/04/2020 03/17/2024 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 End stage renal disease 05/07/202011/21 Essential hypertension 05/07/202012/10 Disorder of kidney 05/07/2020 Dependence on renal dialysis 05/07/2020 12/10/2021 Arteriovenous fistula 12/14/20182022 Body mass index 25-29 - overweight 12/23/2017 04/19/2022 Anemia of chronic disease 10/21/2017 Stage 5 chronic kidney disease 12/16/2016 12/10/2021 Traumatic iritis 01/10/2016 04/19/2022 Overview (01/29/2022): Seen by opthalmology Nephrotic range proteinuria 12/30/2015 04/01/2022 Overview (01/29/2022): Followed by nephrology, serological work up negative, 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 Encounters Date Type Department Care Team Description 07/20/2024 4:00 PM EDT Clinical Support [facility] [address] [place] [address] Maureen Singh, CATHERINE Kidney replaced by transplant (Primary Dx); Kidney transplant status; Personal history of immunosuppression therapy; Stage 3b chronic kidney disease (HCC) 07/10/2024 Orders Only [facility] [address] [place] [address] Kelsy Sotomayor MA Kidney transplant status (Primary Dx); Personal history of immunosuppression therapy; Chronic kidney disease stage 3B (HCC); IgA nephropathy; Tertiary hyperparathyroidism (HCC); Type 2 diabetes mellitus with diabetic chronic kidney disease (HCC); Iron deficiency anemia, not otherwise specified; Kidney replaced by transplant; Hypomagnesemia; Poor glycemic control; Other specified hypoparathyroidism (HCC); Albuminuria, not otherwise specified 06/28/2024 Documentation Only [facility] [address] [place] [address] Crystal Oneil, MARINE MAMMAL TRAINER DATA SHEET 06/26/2024 Documentation Only [facility] [address] [place] [phone] Dara Saldana biopsy report [id number] 06/18/2024 Documentation Only [facility] [address] [place] [address] Kelsy Sotomayor MA 06/09/2024 Telephone [facility] [address] [place] [address] Neyda Crane post op call 06/08/2024 8:00 AM EDT Procedure visit [facility] [address] [place] [phone] Abe Morley MD Kidney replaced by transplant (Primary Dx) 06/06/2024 Refill [facility] [address] [place] [address] Eduardo Desai MD 06/06/2024 Telephone [facility], - [facility] [address] [place] [phone] Shawanda Bowens 05/31/2024 Orders Only [facility], [facility] [place] [phone] Eduardo Desai MD 2024 Telephone [facility] - [facility] [address] [place] [address] Dara Saldana Labs for biopsy 05/25/2024 4:00 PM EST Clinical Support [facility] [address] [place] [address] Maureen Singh FNP-[place] Kidney transplant status (Primary Dx); Personal history of immunosuppression therapy; Chronic kidney disease stage 3B (HCC) 05/24/2024 Refill [facility] [address] [place] [address] Eduardo Desai MD Hypercholesterolemia, not otherwise specified 05/17/2024 Telephone [facility] [address] [place] [address] Crystal Oneil, RN rpt tacro level 05/17/2024 Office Communication [facility] [address] [place] [address] Esteban Bryson MA 05/11/2024 Telephone [facility] [address] [place] [address] Esteban Bryson MA 04/27/2024 Refill [facility] [address] [place] [address] Eduardo Desai MD 04/27/2024 Telephone [facility], [address] [place] [address] Esteban Bryson MA from Last 3 Months Immunizations Immunization Administration Dates Next Due Hep B, Adolescent or Pediatric 11/12/1997,1995,07/20/1995 Influenza Whole 01/16/2014 MMR 07/20/1995,08/20/1984 Pfizer SARS-COV-2 07/16/2020,06/25/2020 Td, Unspecified 11/19/1992 Tdap 01/16/2014,11/01/2007 Varicella 01/06/2018,12/09/2017 Family History Medical History Relation Comments Diabetes Father Hypertension Father Cancer Mother uterine Relation Status Comments Father Alive Mother Alive Social History Tobacco Use Types Packs/Day Years Used Date Smoking Tobacco: Never Smokeless Tobacco: Never Tobacco Cessation:Counseling Given: Not Answered Alcohol Use Standard Drinks/Week Comments Yes 0 (1 standard drink = 0.6 oz pur e alcohol) occasional social Comments Unknown Sex and Gender Information Value Date Recorded Sex Assigned at Not on file Legal Sex Female 4:50 PM EST Gender Identity Not on file Sexual Orientation Not on file Last Filed Vital Signs Vital Sign Reading Time Taken Comments Blood Pressure 149/94 07/20/2024 4:10 PM EDT Pulse 79 07/20/2024 4:10 PM EDT Temperature 35.9 ??C (96.6 ??F) 06/08/2024 7:39 AM ED T Respiratory Rate 16 06/08/2024 7:39 AM EDT Oxygen Saturation 95% 06/08/2024 7:39 AM EDT Inhaled Oxygen Concentration - - Weight 87 kg (191 lb 12.8 oz) 07/20/2024 4:10 PM EDT Height 162.6 cm (5' 4 ) 06/08/2024 7:39 AM EDT Body Mass Index 32.92 06/08/2024 7:39 AM EDT Plan of Treatment Health Maintenance Due Date Last Done Comments Pneumococcal Vaccine: Peds ( 0 to 5 Years) and At-Risk Patients (6 to 49 Years) (1 of 2 - PCV) 05/28/2002 Diabetes: Ophthalmology Exam 04/22/2020 Diabetes: Pedal Pulse Checked 04/22/2020 Diabetes: Sensory Foot Exam 04/22/2020 Diabetes: Visual Foot Exam 04/22/2020 Diabetes: Hemoglobin A1C 10/17/2024 025, 05/13/2024, 04/15/2024, Additional history exists Influenza Vaccine (Season Ended) 2024 01/17/20 14 Hepatitis B Vaccine Completed 11/12/1997, 12/21/1995, 07/20/1995 Procedures Procedure Name Priority Date/Time Associated Diagnosis Comments REFLEXIVE URINE CULTURE (HC) Routine 07/18/2024 8:34 AM EDT URINALYSIS, COMPLETE 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) Iron deficiency anemia, not otherwise specified Kidney replaced by transplant Hypomagnesemia Poor glycemic control Other specified hypoparathyroidism (HCC) Albuminuria, not otherwise specified URINE ALBUMIN / CREATININE RATIO 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) Iron deficiency anemia, not otherwise specified Kidney replaced by transplant Hypomagnesemia Poor glycemic control Other specified hypoparathyroidism (HCC) Albuminuria, not otherwise specified PTH, INTACT 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) Iron deficiency anemia, not otherwise specified Kidney replaced by transplant Hypomagnesemia Poor glycemic control Other specified hypoparathyroidism (HCC) Albuminuria, not otherwise specified IRON PANEL (FE, TIBC, TSAT) 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) Iron deficiency anemia, not otherwise specified Kidney replaced by transplant Hypomagnesemia Poor glycemic control Other specified hypoparathyroidism (HCC) Albuminuria, not otherwise specified FERRITIN 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) Iron deficiency anemia, not otherwise specified Kidney replaced by transplant Hypomagnesemia Poor glycemic control Other specified hypoparathyroidism (HCC) Albuminuria, not otherwise specified CREATINE KINASE 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) Iron deficiency anemia, not otherwise specified Kidney replaced by transplant Hypomagnesemia Poor glycemic control Other specified hypoparathyroidism (HCC) Albuminuria, not otherwise specified ALT 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) Iron deficiency anemia, not otherwise specified Kidney replaced by transplant Hypomagnesemia Poor glycemic control Other specified hypoparathyroidism (HCC) Albuminuria, not otherwise specified AST 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) Iron deficiency anemia, not otherwise specified Kidney replaced by transplant Hypomagnesemia Poor glycemic control Other specified hypoparathyroidism (HCC) Albuminuria, not otherwise specified HEMOGLOBIN A1C 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) Iron deficiency anemia, not otherwise specified Kidney replaced by transplant Hypomagnesemia Poor glycemic control Other specified hypoparathyroidism (HCC) Albuminuria, not otherwise specified MAGNESIUM 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) Iron deficiency anemia, not otherwise specified Kidney replaced by transplant Hypomagnesemia Poor glycemic control Other specified hypoparathyroidism (HCC) Albuminuria, not otherwise specified CBC AND DIFFERENTIAL 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) Iron deficiency anemia, not otherwise specified Kidney replaced by transplant Hypomagnesemia Poor glycemic control Other specified hypoparathyroidism (HCC) Albuminuria, not otherwise specified RENAL FUNCTION PANEL 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) Iron deficiency anemia, not otherwise specified Kidney replaced by transplant Hypomagnesemia Poor glycemic control Other specified hypoparathyroidism (HCC) Albuminuria, not otherwise specified TACROLIMUS, HIGHLY SENSITIVE, LC/MS/MS 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) Iron deficiency anemia, not otherwise specified Kidney replaced by transplant Hypomagnesemia Poor glycemic control Other specified hypoparathyroidism (HCC) Albuminuria, not otherwise specified MICROSCOPIC EXAMINATION - DO NOT USE Routine 07/18/2024 8:34 AM EDT HCG, QUANTITATIVE, Routine 05/31/2024 9:28 AM EDT Chronic kidney disease stage 3B (HCC) Kidney transplant status Personal history of immunosuppression therapy CBC AND DIFFERENTIAL Routine 05/31/2024 9:28 AM EDT Chronic kidney disease stage 3B (HCC) Kidney transplant status Personal history of immunosuppression therapy PROTIME-INR Routine 05/31/2024 9:27 AM EDT REFLEXIVE URINE CULTURE (HC) Routine 05/13/2024 9:25 AM EST MYCOPHENOLIC ACID AND METABO. Routine 05/13/2024 9:25 AM EST Chronic kidney disease stage 3B (HCC) Personal history of immunosuppression therapy Kidney transplant status Type 2 diabetes mellitus without complication (HCC) Hypomagnesemia Anticoagulation contraindicated CREATINE KINASE Routine 05/13/2024 9:25 AM EST Chronic kidney disease stage 3B (HCC) Personal history of immunosuppression therapy Kidney transplant status Type 2 diabetes mellitus without complication (HCC) Hypomagnesemia Anticoagulation contraindicated ALT Routine 05/13/2024 9:25 AM EST Chronic kidney disease stage 3B (HCC) Personal history of immunosuppression therapy Kidney transplant status Type 2 diabetes mellitus without complication (HCC) Hypomagnesemia Anticoagulation contraindicated AST Routine 05/13/2024 9:25 AM EST Chronic kidney disease stage 3B (HCC) Personal history of immunosuppression therapy Kidney transplant status Type 2 diabetes mellitus without complication (HCC) Hypomagnesemia Anticoagulation contraindicated HEMOGLOBIN A1C Routine 05/13/2024 9:25 AM EST Chronic kidney disease stage 3B (HCC) Personal history of immunosuppression therapy Kidney transplant status Type 2 diabetes mellitus without complication (HCC) Hypomagnesemia Anticoagulation contraindicated MAGNESIUM Routine 05/13/2024 9:25 AM EST Chronic kidney disease stage 3B (HCC) Personal history of immunosuppression therapy Kidney transplant status Type 2 diabetes mellitus without complication (HCC) Hypomagnesemia Anticoagulation contraindicated TACROLIMUS LEVEL Routine 05/13/2024 9:25 AM EST Chronic kidney disease stage 3B (HCC) Personal history of immunosuppression therapy Kidney transplant status Type 2 diabetes mellitus without complication (HCC) Hypomagnesemia Anticoagulation contraindicated PROTEIN / CREATININE RATIO, URINE Routine 05/13/2024 9:25 AM EST Chronic kidney disease stage 3B (HCC) Personal history of immunosuppression therapy Kidney transplant status Type 2 diabetes mellitus without complication (HCC) Hypomagnesemia Anticoagulation contraindicated URINALYSIS, COMPLETE Routine 05/13/2024 9:25 AM EST Chronic kidney disease stage 3B (HCC) Personal history of immunosuppression therapy Kidney transplant status Type 2 diabetes mellitus without complication (HCC) Hypomagnesemia Anticoagulation contraindicated RENAL FUNCTION PANEL Routine 05/13/2024 9:25 AM EST Chronic kidney disease stage 3B (HCC) Personal history of immunosuppression therapy Kidney transplant status Type 2 diabetes mellitus without complication (HCC) Hypomagnesemia Anticoagulation contraindicated CBC AND DIFFERENTIAL Routine 05/13/2024 9:25 AM EST Chronic kidney disease stage 3B (HCC) Personal history of immunosuppression therapy Kidney transplant status Type 2 diabetes mellitus without complication (HCC) Hypomagnesemia Anticoagulation contraindicated PROTIME-INR Routine 05/13/2024 9:25 AM EST Chronic kidney disease stage 3B (HCC) Personal history of immunosuppression therapy Kidney transplant status Type 2 diabetes mellitus without complication (HCC) Hypomagnesemia Anticoagulation contraindicated MICROSCOPIC EXAMINATION - DO NOT USE Routine 05/13/2024 9:25 AM EST from Last 3 Months Results * Reflexive Urine Culture (07/18/2024 8:34 AM EDT) Only the most recent of2 resultswithin the time period is included. Result Lactobacillus species [facility] Comment: Greater than 100,000 colony forming units per mL Susceptibility not normally performed on this organism. Culture Result, Urine Final report Clint Logan 07/18/2024 8:34 AM EDT 07/18/2024 Eduardo Desai MD LAB HISTORICAL-CONVERSIONS -UNSOLICITED RESULTS Final Result [facility] Clint Logan [address], [address] [place] [address] * Tacrolimus, Highly Sensitive, LC/MS/MS (07/18/2024 8:34 AM EDT) Tacrolimus by Immunoassay 7.9 5.0 - 20.0 ng/mL [facility] Comment: Detection Limit = 0.8 ng/mL Target steady state trough concentration for Tacrolimus varies based on type of organ transplant immunosuppressive protocol and other patient specific factors. ??Tacrolimus trough concentrations should be interpreted in conjunction with clinical assessments of rejection and tolerability. ??Values obtained with different assay methods cannot be used interchangeably due to differences in assay methods and cross-reactivity with metabolites, nor should correction factors be applied. ??Therefore, consistent use of one assay for individual patients is recommended. Tacrolimus assay performed by [employer]. ? Please note reference interval change [facility] will offer rebaseline testing (Test No. [id number]) through July 19, 2024. ??The rebaseline test will include results from both the current method ([employer]) and the new method ([facility]). ??All test results indicate the tester sound of the test on the laboratory report. ??The rebaseline test for tacrolimus immunoassay is charged at the hager for the new test; the test for the retiring method is performed at no additional charge. 07/18/2024 8:34 AM EDT 07/18/2024 Eduardo Desai MD LAB BLOOD ORDERABLES Final Result [facility] [address] [place] [address] * (ABNORMAL) Urinalysis, Complete w/reflex to Culture (07/18/2024 8:34 AM EDT) Only the most recent of2 resultswithin the time period is included. Specific [place], Urine 1.024 1.005 - 1.030 [facility] pH Urine 6.0 5.0 - 7.5 [facility] [phone] Color, Urine Yellow Yellow [facility] Appearance Urine Cloudy(A) Clear [facility] [phone] WBC Esterase Urine 1+(A) Negative [facility] Protein, Ur 2+(A) Negative/Tra ce [facility] Glucose, Ur Negative Negative [facility] Ketones, Urine Negative Negative [facility] Blood Urine 2+(A) Negative [facility] [phone] Bilirubin Urine Negative Negative [facility] Urobilinogen Urine 0.2 0.2 - 1.0 mg/dL [facility] Nitrite, Urine Negative Negative [facility] [phone] Microscopic Examination See below: [facility] Comment:Microscopic was paz cated and was performed. URINALYSIS REFLEX Comment [facility] Comment:This specimen has re flexed to a Urine Culture. Urine (Urine, Clean Catch) 07/18/2024 8:34 AM EDT 07/18/2024 Eduardo Desai MD LAB URINE ORDERABLES Final Result [facility] [address] [place] [address] * (ABNORMAL) Microscopic Examination (07/18/2024 8:34 AM EDT) Only the most recent of2 resultswithin the time period is included. WBC, Urine 11-30(A) 0 - 5 /hpf [facility] RBC, Urine 3-10(A) 0 - 2 /hpf [facility] Squamous Epithelial, Urine 0-10 0 - 10 /hpf [facility] Casts None seen None seen /lpf [facility] Bacteria, Urine Many(A) None seen/Few [facility] 07/18/2024 8:34 AM EDT 07/18/2024 Eduardo Desai MD LAB MICROBIOLOGY - GENERAL ORDERABLES Final Result [facility] [address] [place] [address] * (ABNORMAL) Iron Panel (Fe, TIBC, TSAT) (07/18/2024 8:34 AM EDT) TIBC 236(L) 250 - 450 ug/dL [facility] UIBC 179 131 - 425 ug/dL [facility] Iron 57 27 - 159 ug/dL [facility] Iron Saturation (TSat) 24 15 - 55 % [facility] Blood (Blood, Venous) 07/18/2024 8:34 AM EDT 07/18/2024 Eduardo Desai MD LAB BLOOD ORDERABLES Final Result [facility] [address] [place] [address] * (ABNORMAL) Urine Albumin / Creatinine Ratio (07/18/2024 8:34 AM EDT) Creatinine, Ur 240.0 Not Estab. mg/dL [facility] Albumin, Urine 183.8 Not Estab. ug/mL [facility] Albumin/Creatin ine Ratio 77(H) 0 - 29 mg/g creat [facility] Comment: ? Normal: ?0 - ??29 ? Moderately increased: 30 - 300 ? Severely increased: ? >300 Urine (Urine, Clean Catch) 07/18/2024 8:34 AM EDT 07/18/2024 Eduardo Desai MD LAB URINE ORDERABLES Final Result [facility] [address] [place] [address] * (ABNORMAL) CBC and Differential (07/18/2024 8:34 AM EDT) Only the most recent of3 resultswithin the time period is included. WBC 8.7 3.4 - 10.8 x10E3/uL [facility] RBC 3.80 3.77 - 5.28 x10E6/uL [facility] Hemoglobin 10.7(L) 11.1 - 15.9 g/dL [facility] Hematocrit 34.7 34.0 - 46.6 % [facility] MCV 91 79 - 97 fL [facility] MCH 28.2 26.6 - 33.0 pg [facility] MCHC 30.8(L) 31.5 - 35.7 g/dL [facility] RDW 13.2 11.7 - 15.4 % [facility] Platelets 250 150 - 450 x10E3/uL [facility] Neutrophils Relative 69 Not Estab. % [facility] Lymphocytes Relative 18 Not Estab. % [facility] Monocytes 6 Not Estab. % [facility] Eosinophils Relative 4 Not Estab. % [facility] Basophils Relative 1 Not Estab. % [facility] Neutrophils Absolute 6.1 1.4 - 7.0 x10E3/uL [facility] Lymphocytes Absolute 1.5 0.7 - 3.1 x10E3/uL [facility] Monocytes Absolute 0.5 0.1 - 0.9 x10E3/uL [facility] Eosinophils Absolute 0.3 0.0 - 0.4 x10E3/uL [facility] Basophils Absolute 0.1 0.0 - 0.2 x10E3/uL [facility] Immature Granulocytes 2 Not Estab. % [facility] Immature Grans (Absolute) 0.1 0.0 - 0.1 x10E3/uL [facility] Blood (Blood, Venous) 07/18/2024 8:34 AM EDT 07/18/2024 Eduardo Desai MD LAB BLOOD ORDERABLES Final Result Performing Organization Address [facility] Co de Phone Number [facility] [address] [place] [address] * (ABNORMAL) ALT (07/18/2024 8:34 AM EDT) Only the most recent of2 resultswithin the time period is included. ALT (SGPT) 40(H) 0 - 32 IU/L [facility] Blood (Blood, Venous) 07/18/2024 8:34 AM EDT 07/18/2024 Eduardo Desai MD LAB BLOOD ORDERABLES Final Result Performing Organization Address [facility] Co de Phone Number [facility] [address] [place] [address] * AST (07/18/2024 8:34 AM EDT) Only the most recent of2 resultswithin the time period is included. AST (SGOT) 25 0 - 40 IU/L [facility] Blood (Blood, Venous) 07/18/2024 8:34 AM EDT 07/18/2024 Eduardo Desai MD LAB BLOOD ORDERABLES Final Result Performing Organization Address [facility] de Phone Number [facility] [address] [place] [address] * (ABNORMAL) PTH, Intact (07/18/2024 8:34 AM EDT) PTH 70(H) 15 - 65 pg/mL [facility] Blood (Blood, Venous) 07/18/2024 8:34 AM EDT 07/18/2024 Eduardo Desai MD LAB BLOOD ORDERABLES Final Result [facility] [address] [place] [address] * Magnesium (07/18/2024 8:34 AM EDT) Only the most recent of2 resultswithin the time period is included. Magnesium 1.8 1.6 - 2.3 mg/dL [facility] Blood (Blood, Venous) 07/18/2024 8:34 AM EDT 07/18/2024 Eduardo Desai MD LAB BLOOD ORDERABLES Final Result Performing Organization Address [facility] Co de Phone Number [facility] [address] [place] [address] * (ABNORMAL) Hemoglobin A1c (07/18/2024 8:34 AM EDT) Only the most recent of2 resultswithin the time period is included. Hemoglobin A1C 6.7(H) 4.8 - 5.6 % [facility] Comment: ? Prediabetes: 5.7 - 6.4 ? Diabetes: >6.4 ? Glycemic control for adults with diabetes: <7.0 Blood (Blood, Venous) 07/18/2024 8:34 AM EDT 07/18/2024 Eduardo Desai MD LAB BLOOD ORDERABLES Final Result Performing Organization Address City/[facility]/ZIP Co de Phone Number [facility] [address] [place] [address] * (ABNORMAL) Ferritin (07/18/2024 8:34 AM EDT) Ferritin 942(H) 15 - 150 ng/mL [facility] Blood (Blood, Venous) 07/18/2024 8:34 AM EDT 07/18/2024 Eduardo Desai MD LAB BLOOD ORDERABLES Final Result Performing Organization Address City/[facility]/ZIP Co de Phone Number [facility] [address] [place] [address] * CK (07/18/2024 8:34 AM EDT) Only the most recent of2 resultswithin the time period is included. Creatine Kinase (CK/CPK) 77 32 - 182 U/L [facility] Blood (Blood, Venous) 07/18/2024 8:34 AM EDT 07/18/2024 Eduardo Desai MD LAB BLOOD ORDERABLES Final Result Performing Organization Address [facility] de Phone Number [facility] [address] [place] [address] * (ABNORMAL) Renal Function Panel (07/18/2024 8:34 AM EDT) Only the most recent of2 resultswithin the time period is included. Glucose 116(H) 70 - 99 mg/dL [facility] BUN 29(H) 6 - 24 mg/dL [facility] Creatinine 1.96(H) 0.57 - 1.00 mg/dL [facility] eGFR CKD-EPI CR 2020 32(L) >59 mL/min/1.7 3 [facility] BUN/Creatinine Ratio 15 9 - 23 [facility] Sodium 137 134 - 144 mmol/L [facility] Potassium 4.8 3.5 - 5.2 mmol/L [facility] Chloride 100 96 - 106 mmol/L [facility] Bicarbonate (CO2) 18(L) 20 - 29 mmol/L [facility] Calcium 7.5(L) 8.7 - 10.2 mg/dL [facility] Albumin 4.6 3.9 - 4.9 g/dL [facility] Phosphorus 5.1(H) 3.0 - 4.3 mg/dL [facility] Blood (Blood, Venous) 07/18/2024 8:34 AM EDT 07/18/2024 Eduardo Desai MD LAB BLOOD ORDERABLES Final Result [facility] [address] [place] [address] * hCG, quantitative, (05/31/2024 9:28 AM EDT) HCG-B Subunit, Quantitative <1 mIU/mL [facility] Comment: ? Female (Non-) ?0 - ? 5 ?(Postmenopausal) ??0 - ? 8 ? Female () ? Weeks of Gestation ? 3 ?6 - ?71 ? 4 ? 10 - ?? 750 ? 5 ?217 - ??7138 ? 6 ?158 - 35944 ? 7 ? 3697 -293884 ? 8 ?76972 -909663 ? 9 ?75579 -639076 ?10 ?58148 -673340 ?12 ?88398 -629442 ?14 ?03793 - 31050 ?15 ?63931 - 06779 ?16 ? 9040 - 95315 ?17 ? 8175 - 52637 ?18 ? 8099 - 00641 [facility] ECLIA methodology Blood (Blood, Venous) 05/31/2024 9:28 AM EDT 05/31/2024 Eduardo Desai MD LAB BLOOD ORDERABLES Final Result [facility] [address] [place] [address] * Protime-INR (05/31/2024 9:27 AM EDT) Only the most recent of2 resultswithin the time period is included. INR 1.0 0.9 - 1.1 [facility] Protime 10.3 9.2 - 11.4 SEC [facility] 05/31/2024 9:27 AM EDT 05/31/2024 Eduardo Desai MD LAB BLOOD ORDERABLES Final Result [facility] [address] [place] [address] * Mycophenolic Acid (05/13/2024 9:25 AM EST) Mycophenolic Acid 2.3 1.0 - 3.5 ug/mL [facility] Mycophenolic Acid Glucuronide 95 15 - 125 ug/mL [facility] Blood (Blood, Venous) 05/13/2024 9:25 AM EST 05/13/2024 Narrative [facility] - 05/17/2024 8:06 PM EST Test(s) 406043-Hyilruzupcre Acid; 581465- Mycophenolic Acid Glucuronide was developed and its performance characteristics determined by [employer] It has not been cleared or approved by the Food and Drug Administration. Result [facility] Eduardo Desai MD LAB BLOOD ORDERABLES Final Result Performing Organization Address [facility] de Phone Number [facility] [address] [place] [address] * Tacrolimus level (05/13/2024 9:25 AM EST) [facility] Tacrolimus Lvl 13.6 5.0 - 20.0 ng/mL [facility] Comment: Target steady state trough concentration for Tacrolimus varies based on type of organ transplant immunosuppressive protocol and other patient specific factors. ??Tacrolimus trough concentrations should be interpreted in conjunction with clinical assessments of rejection and tolerability. ??Values obtained with different assay methods cannot be used interchangeably due to differences in assay methods and cross-reactivty with metabolites, nor should correction factors be applied. ??Therefore, consistent use of one assay for individual patients is recommended. Detection Limit = 0.5 ng/mL Performed by LC-MS/MS technology ?Please note reference interval change Blood (Blood, Venous) 05/13/2024 9:25 AM EST 05/13/2024 Narrative [facility] - 05/17/2024 8:06 PM EST Test(s) 693995-Ypwqbiukht (FK506), Blood was developed and its performance characteristics determined by [employer] It has not been cleared or approved by the Food and Drug Administration. Result [facility] Eduardo Desai MD LAB BLOOD ORDERABLES Final Result Performing Organization Address [facility] Co de Phone Number [facility] [address] [place] [address] * Protein, Total, Random Urine w/Creatinine (Protein/Creat Ratio) (05/13/2024 9:25 AM EST) Creatinine, Ur 292.4 Not Estab. mg/dL [facility] Protein, Ur 43.4 Not Estab. mg/dL [facility] Urine Protein/Creatin ine Ratio 148 0 - 200 mg/g creat [facility] Urine (Urine, Clean Catch) 05/13/2024 9:25 AM EST 05/13/2024 Eduardo Desai MD LAB URINE ORDERABLES Final Result [facility] [address] [place] [address] from Last 3 Months Insurance [facility] Care Teams Medical Billing Specialist Relationship Specialty Start Date End Date Amita Little MD [address] [place] [id number] PCP - General Internal Medicine 01/28/24
--- OUTSIDE RECORDS SUMMARY | 2024-07-24 17:46 | XMS_ITS | Patient Health Record ---
Author Organization [facility] Address [address] [place] [address] Support Name Relationship Address Phone JULIÁN JAMSHID Guarantor Unknown [phone] Reason For Referral No Information Medications Medication SIG (Take, Route, Fr equency, Duration) Notes Start Date End Date Status Vitamins 1 ORAL daily for -3 Benito-MJ 08/09/2013 Active 27-0.8MG 1 ORAL once daily for -3 Benito-MJ 014 Active Problems Problem Type SNOMED Code ICD Code Onset Dates Problem Status W/U Status Risk Notes Problem Obesity (948856864) Obesity, unspecified (278.00) Active confirmed Major Problem Mastodynia (82754686) Mastodynia (611.71) Active confirmed Diag Problem Abnormal vaginal bleeding (609482640) Other disorder of menstruation and other abnormal bleeding from female genital tract (626.8) Active confirmed Diag Problem Gynecological examination normal (587483750750858) Routine gynecological examination (V72.31) Active confirmed Diag Plan Of Treatment No Information Insurance Providers Payer Name Payer Address Payer Phone Subscriber Number Group Number Insured Name Patient Relationship to Insured Coverage Start Date Coverage End Date [employer] [place] [address] [place] [address] [phone] [id number] JAMSHID GALLEGO Self - patient is the insured
--- OUTSIDE RECORDS SUMMARY | 2024-07-24 17:46 | XMS_ITS | Encounter Summary ---
Author Organization [facility] Address [address] [place] [address] Phone Care Team Providers Care Ring Conductor Name Role Phone Amita Little MD Primary Care Provider [phone] Encounter Details Date Type Department Care Team (Late st Contact Info) Description 07/05/2020 Orders Only [facility] [address] [place] [address] Loreto Hale RN Kidney replaced [...] Procedure Name Priority Date/Time Associated Diagnosis Comments ADENOVIRUS DNA, QL, RT PCR () Routine 07/05/2020 9:15 AM EDT documented in this encounter Results * Adenovirus DNA, QL, RT PCR (07/05/2020 9:15 AM EDT) Pathologist [facility] Adenovirus Detection by PCR Not Detected [facility] Comment: Reference range: Not Detected Unit: copies/mL (NOTE) Assay Range: 190 copies/mL to 1.00E+10 copies/mL The limit of quantitation (LOQ) is 190 copies/mL. Adenovirus DNA detected below the LOQ will be reported as Detected:<190 copies/mL. This test was developed and its performance characteristics determined by [employer]. It has not been cleared or approved by the U.S. Food and Drug Administration. Results should be used in conjunction with clinical findings, and should not form the sole basis for a diagnosis or treatment decision. TEST PERFORMED BY [employer] ??[address] ,[place] ??[phone] Testing performed or reported by [facility], a Service of [facility], [address] [place] [address] [place] [address] Geovanny Arango MD, Director Blood Bank 07/05/2020 9:15 AM EDT 07/05/2020 9:16 AM EDT Shelley Kearns MD LAB [id number] LICITED RESULTS Final Result [facility] documented in this encounter Visit Diagnoses Diagnosis Kidney replaced by transplant documented in this encounter Care Teams Ring Conductor Relationship Specialty Start Date End Date Amita Little MD [address] [place] [phone] PCP - General Internal Medicine 01/28/24 documented as of this encounter
[2024-07-24 17:51] LABS: Erythrocyte Sedimentation Rate 55 MM/HR (0-20)
[2024-07-25 22:38] LABS: Myeloperoxidase Antibody <1.0 AI; Proteinase 3 PR3 Antibodies <1.0 AI
[2024-07-26 12:47] LABS: Anti Nuclear Antibody Screen POSITIVE (NEGATIVE)
[2024-07-26 13:33] LABS: Cardiolipin IgG Ab <2.0 GPL-U/mL; Cardiolipin IgM Ab <2.0 MPL-U/mL
[2024-07-28 05:39] LABS: PTT (LAC) Screen 34 sec (<=40)
[2024-07-31 17:54] LABS: Factor V Leiden NEGATIVE
== END 2024-07-24 16:29 | disposition home or self-care (01) ==
LOC: HO.LAB 16:28
PROVIDERS: PCP Internal Medicine; Visit Provider Psychiatry & Neurology Neurology
DX: I63.50 Cerebral infarction due to unspecified occlusion or stenosis of unspecified cerebral artery (principal)
CPT/HCPCS: 36415; 81241; 85597; 85598; 85613; 85652; 85730; 86021; 86038; 86039; 86147